=== PATIENT | female | born 1980 | race American Indian/Alaskan Native ===

== ENCOUNTER 2020-01-05 22:30 | Emergency (ER) | payer SELFPAY ==
--- NOTE | 2020-01-06 | XRay Report ---
. LEFT WRIST 4 VIEWS INDICATION / CLINICAL INFORMATION: left wrist pain. COMPARISON: None available. FINDINGS: No fracture, dislocation or soft tissue within left wrist. Signer Name: Richmond Carter MD Signed: 01/05/2020 11:55 PM Workstation Name: [id number]
--- NOTE | 2020-01-06 01:02 | Emergency Department Report ---
ED General Adult HPI - General Chief complaint: Extremity Injury, Upper Stated complaint: LEFT HAND AND WRIST PAIN Source: patient Mode of arrival: Ambulatory Limitations: No Limitations - Related Data Allergies Allergy/AdvReac Type Severity Reaction Status Date / Time aspirin Allergy Hives Verified 01/05/20 23:37 ED Review of Systems ROS: Stated complaint: LEFT HAND AND WRIST PAIN Other details as noted in HPI ED Past Medical Hx - Past Medical History Previous Medical History?: Yes Additional medical history: High Cholesterol - Surgical History Past Surgical History?: Yes Additional Surgical History: Hysterectomy, Back, Right knee - Social History Smoking Status: Never Smoker Substance Use Type: None ED Physical Exam - General Limitations: No Limitations ED Course Vital Signs 01/05/20 23:28 Temperature 98.3 F Pulse Rate 54 L Respiratory 18 Rate Blood Pressure 148/83 O2 Sat by Pulse 100 Oximetry ED Medical Decision Making - Radiology Data Radiology results: report reviewed . LEFT WRIST 4 VIEWS INDICATION / CLINICAL INFORMATION: left wrist pain. COMPARISON: None available. FINDINGS: No fracture, dislocation or soft tissue within left wrist. Critical care attestation.: If time is entered above; I have spent that time in minutes in the direct care of this critically ill patient, excluding procedure time. ED Disposition Condition: Stable Referrals: PRIMARY CARE, [Primary Care Provider] - 3-5 Days
--- NOTE | 2020-01-06 02:31 | Emergency Department Report ---
Chief Complaint: Extremity Injury, Upper Stated Complaint: LEFT HAND AND WRIST PAIN Time Seen by Provider: 01/06/20 01:02 - HPI History of Present Illness: 39-year-old -[place] female patient with history of HLD presents with complaints of left wrist pain x2 days. Patient states when she awoke 2 days ago she bent her wrist to push herself off the bed and felt a sudden pop and had sudden pain. She rates her current pain as a 7/10 in severity and states it wo rsens with extension of the wrist. She denies any history of gout, cancer, numbness/tingling/weakness in the wrist or hand/fingers, fever/chills/sweats, or difficulty moving her wrist or fingers. Patient states her pain has not improved with naproxen. - Exam Vital Signs: Vital Signs 01/05/20 23:28 Temperature 98.3 F Pulse Rate 54 L Respiratory 18 Rate Blood Pressure 148/83 O2 Sat by Pulse 100 Oximetry MSE screening note: Focused history and physical exam performed. Due to findings the following was ordered: ED Medical Decision Making - Radiology Data Radiology results: report reviewed . LEFT WRIST 4 VIEWS INDICATION / CLINICAL INFORMATION: left wrist pain. COMPARISON: None available. FINDINGS: No fracture, dislocation or soft tissue within left wrist. - Medical Decision Making Patient here with left wrist pain after an injury 2 days ago. Symptoms and physical exam appear to be consistent with left wrist sprain. Patient placed in a Иван wrap and states the pain improves with compression. Recommend rice method with follow-up with PCP for now. Discussed signs and symptoms of tenosynovitis and other strict return precautions in great detail with patient who verbalizes understanding. ED Disposition for MSE Clinical Impression: Left wrist sprain Qualifiers: Encounter type: initial encounter Qualified Code(s): S63.502A - Unspecified sprain of left wrist, initial encounter Disposition: Z-07 MED SCREENING EXAM-LEFT Is pt being admited?: No Condition: Stable Instructions: Wrist Sprain (ED) Additional Instructions: If you develop worsening of pain, redness, difficulty moving your wrist or fingers, fever, loss of sensation in your hand or fingers, or any new or concerning symptoms, seek immediate emergency treatment. Referrals: [facility] [Provider Group] - 3-5 Days ED Physical Exam - General Limitations: No Limitations General appearance: alert, in no apparent distress, obese - Head Head exam: Present: atraumatic, normocephalic - Eye Eye exam: Present: normal appearance. Absent: scleral icterus - Neck Neck exam: Present: full ROM - Respiratory Respiratory exam: Absent: respiratory distress - Cardiovascular Cardiovascular Exam: Present: regular rate - Expanded Upper Extremity Exam Right Forearm Wrist exam: Present: full ROM. Absent: swelling, abrasion, laceration, deformity, crepidus, dislocation, erythema, tenderness over anatomical snuff box, pain with axial thumb loading Hand Wrist exam: Present: full ROM, tenderness (Noted over tendons of lateral wrist, no bony tenderness or erythema noted. No swelling noted.). Absent: swelling, abrasion, laceration, ecchymosis, deformity, crepidus, erythema Neuro motor exam: Present: wrist extension intact, thumb opposition intact, thumb IP flexion intact, thumb adduction intact, fingers 2-5 abduction intact Neurosensory exam: Present: radial nerve intact, ulnar nerve intact, median nerve intact Vascular: Present: normal capillary refill. Absent: vascular compromise, pulse deficit radial art, pulse deficit ulnar art - Skin Skin exam: Present: warm, dry, intact, normal color. Absent: rash, cyanosis, diaphoretic, erythema, petechiae, ecchymosis
[2020-01-06 02:57] VITALS: BP 139/82
== END 2020-01-06 02:55 | disposition left against medical advice (07) ==
LOC: ED 22:30
DX: S63.502A Unspecified sprain of left wrist, initial encounter (principal); Z53.21 Procedure and treatment not carried out due to patient leaving prior to being seen by health care provider; X58.XXXA Exposure to other specified factors, initial encounter; Y93.89 Activity, other specified; Y92.89 Other specified places as the place of occurrence of the external cause; Y99.8 Other external cause status

== ENCOUNTER 2020-06-24 10:20 | Emergency (ER) | payer SELFPAY ==
[2020-06-24 11:09] VITALS: BP 144/83
--- NOTE | 2020-06-24 11:42 | Emergency Department Report ---
Chief Complaint: Urogenital-Female Stated Complaint: KNOT ON HAND, UTI - HPI History of Present Illness: 40-year-old female comes in for 2weeks vaginal odor with no pain no discharge no bleeding. She comes in with a right thumb cyst for 1 month. No fever no chills no nausea no vomiting chest pain or shortness of breath - Exam Vital Signs: Vital Signs 06/24/20 11:02 Temperature 98.6 F Pulse Rate 72 Respiratory 18 Rate Blood Pressure 144/83 O2 Sat by Pulse 99 Oximetry Physical Exam: Gen: alert oriented NAD Cardic: regular rate and rhythm no murmurs appreciated Resp: Clear to auscultation bilateral no wheezing no rales or rhonchi. Abdomen: Soft nontender nondistended normal bowel sounds. Ganglionic on cyst on the right thumb. Full range of motion mild tenderness MSE screening note: Focused history and physical exam performed. Due to findings the following was ordered: 40-year-old female comes in for 2weeks vaginal odor with no pain no discharge no bleeding. She comes in with a right thumb cyst for 1 month. No fever no chills no nausea no vomiting chest pain or shortness of breath Referral to a primary care provider or orthopedist ED Disposition for MSE Disposition: Z-07 MED SCREENING EXAM-LEFT Is pt being admited?: No Does the pt Need Aspirin: No Condition: Stable
== END 2020-06-24 12:01 | disposition left against medical advice (07) ==
LOC: ED 10:20
DX: N39.0 Urinary tract infection, site not specified (principal); Z53.21 Procedure and treatment not carried out due to patient leaving prior to being seen by health care provider

== ENCOUNTER 2021-07-06 06:40 | Emergency (ER) | payer SELFPAY ==
[2021-07-06 06:45] VITALS: BP 139/88
--- NOTE | 2021-07-06 07:38 | Emergency Department Report ---
ED ENT HPI - General Chief complaint: Sore Throat Stated complaint: THROAT/HEAD/EAR PAIN Time Seen by Provider: 07/06/21 07:04 Source: patient Mode of arrival: Ambulatory Limitations: No Limitations - History of Present Illness Initial comments: 41-year-old obese -[place] female presents to the emergency room for 3- day history of sore throat and ear pain. Patient denies any fever admits to chills denies any nausea no vomiting no abdominal pain. She is not vaccinated for Covid and has not tested for Covid. She states that she recently traveled. She currently does not have a primary care provider she is allergic to aspirin causes her to swell. MD complaint: sore throat Onset/Timin -: days(s) Location: throat Severity: moderate Quality: stabbing, sharp Consistency: constant Improves with: none Worsens with: swallowing Associated Symptoms: pain with swallowing, sore throat. denies: fever, cough, gum swelling, toothache, tinnitus, hearing loss, discharge from ear, rhinorrhea - Related Data Allergies Allergy/AdvReac Type Severity Reaction Status Date / Time aspirin Allergy Hives Verified 07/06/21 06:45 ED Dental HPI - General Chief complaint: Sore Throat Stated complaint: THROAT/HEAD/EAR PAIN Time Seen by Provider: 07/06/21 07:04 Source: patient Mode of arrival: Ambulatory Limitations: No Limitations - Related Data Allergies Allergy/AdvReac Type Severity Reaction Status Date / Time aspirin Allergy Hives Verified 07/06/21 06:45 ED Review of Systems ROS: Stated complaint: THROAT/HEAD/EAR PAIN Other details as noted in HPI ED Past Medical Hx - Past Medical History Previous Medical History?: No Additional medical history: High Cholesterol - Surgical History Past Surgical History?: No Additional Surgical History: Hysterectomy, Back, Right knee - Social History Smoking Status: Never Smoker Substance Use Type: None ED Physical Exam - General Limitations: No Limitations General appearance: alert, in no apparent distress - Head Head exam: Present: atraumatic, normocephalic - Eye Eye exam: Present: normal appearance - ENT ENT exam: Present: mucous membranes moist - Neck Neck exam: Present: normal inspection - Respiratory Respiratory exam: Present: normal lung sounds bilaterally. Absent: respiratory distress - Cardiovascular Cardiovascular Exam: Present: regular rate, normal rhythm. Absent: systolic murmur, diastolic murmur, rubs, gallop - GI/Abdominal GI/Abdominal exam: Present: soft, normal bowel sounds - Extremities Exam Extremities exam: Present: normal inspection - Back Exam Back exam: Present: normal inspection - Neurological Exam Neurological exam: Present: alert, oriented X3, normal gait - Psychiatric Psychiatric exam: Present: normal affect, normal mood - Skin Skin exam: Present: warm, dry, intact, normal color. Absent: rash ED Course Vital Signs 07/06/21 06:43 Temperature 98.2 F Pulse Rate 77 Respiratory 18 Rate Blood Pressure 139/88 [Right] O2 Sat by Pulse 98 Oximetry ED Medical Decision Making - Medical Decision Making 41-year-old obese -[place] female presents to the emergency room for 3- day history of sore throat and ear pain. Patient denies any fever admits to chills denies any nausea no vomiting no abdominal pain. She is not vaccinated for Covid and has not tested for Covid. She states that she recently traveled. She currently does not have a primary care provider she is allergic to aspirin causes her to swell. Strep sent out negative. Patient increase fluids Tylenol ibuprofen warm salt gargles. Critical care attestation.: If time is entered above; I have spent that time in minutes in the direct care of this critically ill patient, excluding procedure time. ED Disposition Clinical Impression: Sore throat (viral) Disposition: 01 HOME / SELF CARE / HOMELESS Is pt being admited?: No Does the pt Need Aspirin: No Condition: Stable Instructions: Pharyngitis, [id number] Additional Instructions: Strep test is negative. Continue with Tylenol ibuprofen increase your fluid intake cough drops warm salt gargles. Referrals: PRIMARY MD EMMETT [Primary Care Provider] - 3-5 Days [facility] [Provider Group] - 3-5 Days Forms: Work/School Release Form(ED) Time of Disposition: 09:00
== END 2021-07-06 09:19 | disposition home or self-care (01) ==
LOC: ED 06:40
DX: J02.8 Acute pharyngitis due to other specified organisms (principal); B97.89 Other viral agents as the cause of diseases classified elsewhere; E78.00 Pure hypercholesterolemia, unspecified; Z90.710 Acquired absence of both cervix and uterus; Z88.6 Allergy status to analgesic agent; Z79.899 Other long term (current) drug therapy
CPT/HCPCS: 87116; 87430; 99283

== ENCOUNTER 2021-08-22 09:46 | Emergency (ER) | payer OTHER ==
[2021-08-22 09:51] VITALS: BP 145/83
[2021-08-22] MEDS ORDERED: KETOROLAC 30 MG/1 ML INJ IM ONE (10:15)
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
[2021-08-22] MEDS ORDERED: LIDOCAINE 5% 1 EACH PATCH TD ONE (11:46)
== END 2021-08-22 12:25 | disposition home or self-care (01) ==
LOC: ED 09:46
DX: S16.1XXA Strain of muscle, fascia and tendon at neck level, initial encounter (principal); R51.9 Headache, unspecified; Z90.710 Acquired absence of both cervix and uterus; Z88.6 Allergy status to analgesic agent; Z79.899 Other long term (current) drug therapy; V87.7XXA Person injured in collision between other specified motor vehicles (traffic), initial encounter; Y93.89 Activity, other specified; Y92.488 Other paved roadways as the place of occurrence of the external cause; Y99.8 Other external cause status
CPT/HCPCS: 72040; 96372; 99283; J1885